=== PATIENT | female | born 1990 | race American Indian/Alaskan Native ===

== ENCOUNTER 2017-05-06 10:04 | Inpatient (IN) | payer OTHER ==
[~2017-05-06] VITALS: Ht 175.3 cm; Wt 50.6 kg
[2017-05-06] MEDS ORDERED: VITAMIN C1000 MG PO (10:19)
--- NOTE | 2017-05-06 14:30 | NUR ---
REPORT RECEIVED FROM JERMAINE OBANDO. PATIENT TO BE ARRIVING IN CCU. DR. GARCIA EVALUATED PATIENT IN ER PER REPORT. PENDING FURTHER ORDERS.
--- NOTE | 2017-05-06 14:47 | NUR ---
26 YR OLD FEMALE PATIENT ADMIITTED TO CCU FROM ER VIA STRETCHER UNDER DR. GARCIA WITH ASA OD. PATIENT STATES SHE TOOK 424 325 MG ASA AT APPROX 0915. IS AWAKE AND ALERT. DENIES NAUSEA. C/O RINGING IN EARS.
--- NOTE | 2017-05-06 15:24 | EKG ---
[facility] [address] [facility] [place] [address] Signed Normal sinus rhythm Normal ECG No previous ECGs available Confirmed by JEREMY GARCIA MD ([id number]) on 05/06/2017 3:24:39 PM Electronically Signed By: JEREMY GARCIA MD 05/06/17 1524 PATIENT NAME: ARMIDA FOLEY Electrocardiogram DATE OF : [birth year] PHYSICIAN: JEREMY GARCIA MD REPORT #: [id number] REPORT IS CONFIDENTIAL AND NOT TO BE RELEASED WITHOUT AUTHORIZATION
--- NOTE | 2017-05-06 16:16 | NUR ---
DR. GARCIA HERE TO SEE PATIENT. PATIENT WILL BE TRANSFERRED TO [facility] ASA LEVEL 102. PATIENT IS UNDERSTANDING. IVF SODIUM BICARB WITH 40 MEQ KCL INFUSING. C/O TINNITUS. URINE SENT TO LAB EARLIER FOR PH.
--- NOTE | 2017-05-06 16:22 | NUR ---
LABS DRAWN OF VENOUS PH,CMP,SALICYLATE LEVEL. STATES I FEEL SICK. CHARCOAL 2ND DOSE GIVEN.
--- NOTE | 2017-05-06 16:50 | NUR ---
[facility] HERE TO TRANSPORT TO [facility]. REPORT TO THEM. PATIENT TO COMMOED TO ATTEMPT TO VOID. UNABLE TO VOID. SITTING AT BEDSIDE READY FOR TRANSFER. IVF PATENT AT 200 ML/HR. IS SOMEWHAT SHAKEY. SKIN IS MOIST TO TOUCH.
--- NOTE | 2017-05-06 17:00 | NUR ---
TO [facility] VIA [facility].
--- NOTE | 2017-05-06 17:20 | NUR ---
REPORT TO [facility].
--- NOTE | 2017-05-06 18:42 | NUR ---
KELLI CALLED AND UPDATED ON MOST RECENT SALICYLATE LEVEL OF 116.8.
== END 2017-05-06 17:00 | disposition short-term general hospital (02) | DRG 918 ==
LOC: ED 10:04 → CCU 14:14
PROVIDERS: ADMIT Internal Medicine
DX: T39.012A Poisoning by aspirin, intentional self-harm, initial encounter (principal); F41.8 Other specified anxiety disorders; G47.00 Insomnia, unspecified; F43.10 Post-traumatic stress disorder, unspecified; F17.210 Nicotine dependence, cigarettes, uncomplicated
CPT/HCPCS: 36415; 36600; 80053; 80176; 81001; 81005; 82800; 82803; 84132; 84443; 84703; 85025; 93005; 93010; 96365; 96366; 96368; 96375; 99285; G0480; J2405; J3480; J7060; J7070

== ENCOUNTER 2022-09-04 02:11 | Observation (INO) | payer OTHER ==
[~2022-09-04] VITALS: Ht 175.3 cm; Wt 52.5 kg
[~2022-09-04 02:11] MED LIST: VITAMIN C1000 MG PO
--- NOTE | 2022-09-04 04:03 | NUR ---
PATIENT ARRIVE TO THE FLOOR VIA WHEEL CHAIR. PATIENT ABLE TO AMBULATE FROM WHEELCAHIR TO BED WITH NO ASSISTANCE. VITALS TAKEN AND RECORDED. ADMISSION COMPLETED. IV INFUSING PER ORDER. UPDATE PATIENT ON PLAN OF CARE. NO NEEDS NOTED. CALL LIGHT IN REACH.
--- NOTE | 2022-09-04 05:30 | NUR ---
PATIENT IS RESTING IN BED WATCHING TV. IV INFUSING PER ORDER. PATIENT DENIES ANY PAIN OR SOB. NO NEEDS NOTED. PUBLIC AFFAIRS MANAGER IN ROOM TAKING VITALS.
--- NOTE | 2022-09-04 05:44 | NUR ---
MD IN ROOM TO EVALUATE PATIENT. CONSENT SIGNED. PATIENT IS RESTING IN BED. PATIENT DENIES ANY NEEDS. CALL LIGHT IN REACH.
--- NOTE | 2022-09-04 07:17 | CONS ---
[facility] [address] [place], [place] [address] Signed DATE OF CONSULTATION: 09/04/2022 CHIEF COMPLAINT: Proximal esophageal pain/foreign body. HISTORY OF PRESENT ILLNESS: Reid is a 31-year-old gentleman, who is transitioning to female gender. She made a very thick sandwich yesterday and had multiple toothpicks in the sandwitch. She was eating the sandwich while watching TV program dealing with medicine. She was removing the toothpicks one at a time as she ate the sandwich. She also had multiple gann bits on the sandwitch. She took a toothpick out and through in the trash and when she took a bite, she swallowed something that scratched her throat proximal near the sternal notch. She was afraid that maybe she swallowed part of a toothpick. She came to the emergency room for evaluation. I had been asked to admit her as a general surgeon on-call overnight. The nurse who took care of her in the ER also took care of her on our med/surg floor due to staffing issues. Apparently, Reid has done fine. I think a lot of this is actually driven by anxiety more than anything else. PAST MEDICAL HISTORY: 1. Fibromyalgia. 2. Insomnia. 3. Depression. 4. Suicide attempt. 5. Transsexual and posttraumatic stress disorder. PAST SURGICAL HISTORY: Includes none. SOCIAL HISTORY: She does not smoke or drink. She goes to the [facility]. Rosey Sierra is her mother at [phone]. She is a homemaker. Her boyfriend is Roberto Nicole. They have no children. FAMILY HISTORY: She said there are multiple issues in her family, but she is not close to the family. REVIEW OF SYSTEMS: She had 10 systems reviewed and she reminded me that I did bowel surgery for her boyfriend Roberto. ALLERGIES: Spiders, house dust, nickel, coconuts and bees. Electronically Signed By: GRAHAM LESLIE MD 09/04/22 0717 PATIENT NAME: ARMIDA FOLEY CONSULTATION DATE OF : 89 REPORT #: [id number] PHYSICIAN: GRAHAM LESLIE MD PCP: [facility] REPORT IS CONFIDENTIAL AND NOT TO BE RELEASED WITHOUT AUTHORIZATION [facility] [address] [place] [id number] Signed MEDICATIONS: Kratom which she uses for pain and . PHYSICAL EXAMINATION: VITAL SIGNS: Her blood pressure is 117/68, heart rate is 85, respiratory rate is 15, her temperature is 98.4, she is 100% on room air. She is 5 feet 9 inches at 52 kg with a body mass index of 17. GENERAL: Reid is a 31-year-old female who generally appears healthy and at her stated age. She is gutierrez to the point of being almost cachectic. She is very pleasant. She is in no acute distress. She feels a little tickling in her esophagus around the sternal notch. She seems to be able to swallow fine. LUNGS: Clear to auscultation bilaterally. HEART: Regular rate and rhythm without murmur. ABDOMEN: Soft, flat and nontender. LABORATORY DATA: COVID test is negative. We did order a CBC and a BMP which is pending. RADIOGRAPHIC STUDIES: Chest x-ray is unremarkable. ASSESSMENT AND PLAN: Reid is a 31-year-old female who swallowed either a gann bit or possibly a toothpick with some irritation in her proximal esophagus at the level of sternal notch. She seems to have done very well overnight. I reviewed the above findings with Reid in detail. We have discussed upper endoscopy. She understands there is risk including, but not limited to gas bloating, crampy abdominal pain, bleeding, perforation requiring surgery, and missed diagnosis. She also understands the need for monitored anesthesia care given her current situation. We are going to add her on this morning for upper endoscopy. If that is negative, she will be able to go home later. She has expressed understanding and agrees with the above plan. Graham Leslie MD ALB/MODL /[id number] cc: Graham Leslie MD Electronically Signed By: GRAHAM LESLIE MD 09/04/22 0717 PATIENT NAME: ARMIDA FOLEY CONSULTATION DATE OF : 89 REPORT #: [id number] PHYSICIAN: GRAHAM LESLIE MD PCP: [facility] REPORT IS CONFIDENTIAL AND NOT TO BE RELEASED WITHOUT AUTHORIZATION [address] [address] Signed [facility] Copies: GRAHAM LESLIE MD ~ Electronically Signed By: GRAHAM LESLIE MD 09/04/22 0717 PATIENT NAME: ARMIDA FOLEY CONSULTATION DATE OF : 89 REPORT #: [id number] PHYSICIAN: GRAHAM LESLIE MD PCP: [facility] REPORT IS CONFIDENTIAL AND NOT TO BE RELEASED WITHOUT AUTHORIZATION
--- NOTE | 2022-09-04 07:20 | NUR ---
REPORT RECEIVED FROM JERMAINE ARCOS. PT LAYING IN BED WITH TABLET IN HANDS. PT RESPONDS WHEN ADDRESSED. PT QUESTIONS ANSWERED. NO OTHER NEEDS AT THIS TIME. CALL LIGHT IN REACH.
--- NOTE | 2022-09-04 08:30 | NUR ---
IN TO ANSWER CALL LIGHT. PT REQUESTING TO USE RESTROOM. IV INFUSING. PUMP UNPLUGGED AND PT AMBULATED TO BATHROOM WITH NO ISSUES.
--- NOTE | 2022-09-04 08:30 | NUR ---
Spoke with pt and she is awaiting an EGD as she is unsure if she swallowed a tooth pic. States she does not take meds and has not seen [facility] in over a year as she is healthy. She denies any needs and plans on dc to home with her boyfriend she lives with. He will transport her home.
--- NOTE | 2022-09-04 08:56 | NUR ---
IN TO ROUND ON PT. IV PUMP PLUGGED BACK IN. PT SITTING UP IN BED. ASSESSMENT COMPLETE. BRUISING NOTED TO BLE. PT REPORTS NO PAIN. NO OTHER NEEDS AT THIS TIME. CALL LIGHT IN REACH.
--- NOTE | 2022-09-04 11:05 | NUR ---
09/04/22 1105 Linda Hernandez 1057 PATIENT ARRIVES TO PACU SLEEPING. DOES NOT RESPOND TO VERBAL STIMULI. RESP EVEN AND UNLABORED, NC AT 2 LITERS, TURNED OFF ON ARRIVAL TO PACU. 1102 PATIENT AWAKE OFF/ON. OCCASIONAL COUGH. RESP EVEN AND UNLABORED. DENIES PAIN OR NAUSEA. C/O THE LIGHTS BOTHER HER EYES. WASH CLOTH GIVEN FOR EYES.
--- NOTE | 2022-09-04 11:30 | NUR ---
PT BACK FROM SCOPE VIA STRETCHER. PT MOVES SELF FROM STRETCHER TO BED. VSS. NO COMPLAINTS OF PAIN OR NAUSEA. WATER AND SNACK PROVIDED. NO OTHER NEEDS AT THIS TIME. CALL LIGHT IN REACH. SIGNIFICANT OTHER IN ROOM.
[2022-09-04] MEDS ORDERED: HAIR, SKIN & N1 EACH PO (12:01)
[2022-09-04] MEDS ORDERED: KRATOM PO (12:01)
--- NOTE | 2022-09-04 12:02 | NUR ---
MED REC COMPLETE
--- NOTE | 2022-09-04 12:52 | NUR ---
DC PAPERWORK AND HANDOUTS PROVIDED. QUESTIONS ANSWERED, PT AND SIGNIFICANT OTHER VERBALIZES UNDERSTANDING. FOLLOW-UP APPOINTMENT CARD GIVEN. IV REMOVED, CATHETER INTACT. VSS. PT WHEELED OUT BY MADISYN ROJAS. PT TAKEN HOME BY PRIVATE CAR.
--- NOTE | 2022-09-05 08:17 | OR ---
[facility] [address] [place], [place] [address] Signed DATE OF OPERATION: 09/04/2022 SURGEON: Graham Dalton MD PREOPERATIVE DIAGNOSIS: Possible proximal esophageal foreign body (toothpick). POSTOPERATIVE DIAGNOSES: 1. Moderate diffuse punctate hemorrhagic gastritis. 2. No esophageal foreign body. PROCEDURES: Esophagogastroduodenoscopy with CLOtest and biopsies of the antrum. ESTIMATED BLOOD LOSS: None. FINDINGS: No foreign body noted nor any damage to the proximal esophagus. INDICATIONS: Reid is a 31-year-old gentleman, who is transitioning to female gender. I have helped to take care of Reid's boyfriend in the past. Last night, she made a large turkey sandwich and had multiple tooth picks through this damage, so the meat would slide off the bread. She took a toothpick out and took a bite and swallowed it. She felt scratching as it went down her throat. She had quite a few gann bits on the sandwich as well. It frightened her, so she came to emergency room for evaluation. Around 02:00 a.m. I was called, we went ahead and admitted her overnight. She seemed to be doing fine. Her blood work from this morning was fine. Chest x-ray was unremarkable. I met with Reid this morning and explained her the best we would just pass the gastroscope through that area and make sure everything was okay. We reviewed upper endoscopy in detail. She understands there is risk including, but not limited to gas bloating, crampy abdominal pain, bleeding, perforation requiring surgery, and missed diagnosis. We also discussed the need for monitored anesthesia care if indeed we would have to deal with the foreign body. She had expressed understanding and wished to proceed. DESCRIPTION OF PROCEDURE: Reid was taken into our endoscopy suite and placed in a supine semi-recumbent position. She was given monitored anesthesia with propofol IV per nurse flaring machine operator. A bite block was utilized. The posterior oropharynx was anesthetized with Hurricaine spray. Electronically Signed By: GRAHAM DALTON MD 09/05/22 0817 PATIENT NAME: ARMIDA FOLEY OPERATIVE REPORT DATE OF : [birth year] REPORT #: [id number] PHYSICIAN: GRAHAM DALTON MD PCP: [facility] REPORT IS CONFIDENTIAL AND NOT TO BE RELEASED WITHOUT AUTHORIZATION [facility] [address] [place], [place] [address] Signed The adult gastroscope had been introduced and advanced under direct visualization without difficulty. We came through the proximal esophagus very slowly and there was no any evidence of trauma whatsoever. The middle and upper esophagus were fine. No disruption to the Z-line. We came into the stomach and she does have moderate diffuse punctate hemorrhagic gastritis. We passed the scope out into the duodenum. The duodenum and pyloric channel were unremarkable. We went and took a biopsy of the antrum for CLOtest as well as pathologic review. Upon retroflexion of scope we do not see any evidence of hiatal hernia. There was no foreign bodies in the stomach. The scope was withdrawn up through the area of the GE junction, which was compliant without stricture. No esophageal or gastric varices. Again, no damage to the distal middle or upper esophagus. After this, the gas was suctioned out and the gastroscope removed. Reid tolerated the procedure quite well. RECOMMENDATIONS: I will see Reid back in my office in 7 to 14 days to review her results. She might consider an H2 misael for her gastritis. Graham Dalton MD ALB/MODL /[id number] cc: Graham Dalton MD Patient Chart [facility] Copies: GRAHAM DALTON MD [facility] ~ Electronically Signed By: GRAHAM DALTON MD 09/05/22 0817 PATIENT NAME: ARMIDA FOLEY OPERATIVE REPORT DATE OF : 89 REPORT #: [id number] PHYSICIAN: GRAHAM DALTON MD PCP: [facility] REPORT IS CONFIDENTIAL AND NOT TO BE RELEASED WITHOUT AUTHORIZATION
== END 2022-09-04 12:52 | disposition home or self-care (01) ==
LOC: ED 02:11 → MS 02:13
PROVIDERS: ADMIT Colon & Rectal Surgery; ATTEND Colon & Rectal Surgery
PROC: 0DB68ZX Excision of Stomach, Via Natural or Artificial Opening Endoscopic, Diagnostic (ICD-10-PCS; principal; 2022-09-04 10:30)
DX: K29.51 Unspecified chronic gastritis with bleeding (principal); Z20.822 Contact with and (suspected) exposure to COVID-19; B96.81 Helicobacter pylori [H. pylori] as the cause of diseases classified elsewhere
CPT/HCPCS: 36415; 71046; 80048; 85025; 87077; 96360; 96361; 99284-25; G0378; J7121; U0003

== ENCOUNTER 2024-11-16 13:58 | Emergency (ER) | payer OTHER ==
[~2024-11-16] VITALS: Ht 175.3 cm; Wt 61.7 kg
[~2024-11-16 13:58] MED LIST changes: +HAIR, SKIN & N1 EACH PO; +KRATOM PO
[2024-11-16 14:45] VITALS: BP 142/77
== END 2024-11-16 14:45 | disposition home or self-care (01) ==
LOC: ED 13:58
DX: S00.81XA Abrasion of other part of head, initial encounter (principal); F17.200 Nicotine dependence, unspecified, uncomplicated; Z91.048 Other nonmedicinal substance allergy status; Z91.038 Other insect allergy status; Z91.018 Allergy to other foods; W22.8XXA Striking against or struck by other objects, initial encounter; Y93.E9 Activity, other interior property and clothing maintenance
CPT/HCPCS: 99284